=== PATIENT | male | born 1985 | race Caucasian/White ===

== ENCOUNTER 2019-11-27 13:02 | Emergency (ER) | payer OTHER | END 2019-11-27 14:30 | LOC: MADERS 13:02 | DX: S01.21XA Laceration without foreign body of nose, initial encounter (principal); S01.511A Laceration without foreign body of lip, initial encounter; F17.210 Nicotine dependence, cigarettes, uncomplicated; W22.09XA Striking against other stationary object, initial encounter | CPT/HCPCS: 99283 ==

== ENCOUNTER 2020-11-25 10:50 | Emergency (ER) | payer OTHER ==
[2020-11-25] MEDS ORDERED: Boostrix 0.5 ML (Tdap) VIAL ONE (12:05)
== END 2020-11-25 12:20 ==
LOC: MADERS 10:50
DX: S80.812A Abrasion, left lower leg, initial encounter (principal); S80.811A Abrasion, right lower leg, initial encounter; F15.10 Other stimulant abuse, uncomplicated; F17.210 Nicotine dependence, cigarettes, uncomplicated; X58.XXXA Exposure to other specified factors, initial encounter
CPT/HCPCS: 90471; 90715; 99284